=== PATIENT | female | born 1960 | race Caucasian/White ===

== ENCOUNTER 2021-10-21 16:48 | Inpatient (IN) | payer SELFPAY ==
[~2021-10-21] VITALS: Ht 162.6 cm; Wt 80.7 kg
[2021-10-21] MEDS ORDERED: DEXAMETHASONE 10 MG/ML VIAL IV ONE (17:45)
[2021-10-21 18:11] LABS: HEMATOCRIT. 43.4 % (36.0-48.0); HEMOGLOBIN. 14.3 g/dL (12.0-16.0); MEAN CORPUSCULAR HEMOGLOBIN 26.8 pg (28.0-32.0); MEAN PLATELET VOLUME 8.7 fl (7.4-10.4); PLATELET 224 x1000/uL (130-400); RED BLOOD CELL COUNT 5.36 mill/uL (4.2-5.4); RED CELL DISTRIBUTION WIDTH 14.4 % (11.6-14.6)
[2021-10-21 18:12] LABS: CHLORIDE 100 mEq/L (98-107)
[2021-10-21 18:42] LABS: PLATELET ESTIMATE NORMAL
[2021-10-21] MEDS ORDERED: KETOROLAC 15MG/ML VIAL IV ONE (19:30)
[2021-10-21] MEDS ORDERED: DOCUSATE SODIUM 100MG CAPSULE PO PRN (22:15)
[2021-10-21] MEDS ORDERED: CLONIDINE 0.1MG TABLET PO PRN (22:15)
[2021-10-21] MEDS ORDERED: NITROGLYCERIN 0.4MG TABLET SL SL PRN (22:15)
[2021-10-21] MEDS ORDERED: IPRATROPIUM/ALBUTEROL 0.5-3(2.5)MG/3ML NEB NEB PRN (22:15)
[2021-10-21] MEDS ORDERED: ZOLPIDEM TARTRATE 5MG TABLET PO PRN (22:15)
[2021-10-21] MEDS ORDERED: MAGNESIUM/ALUMINUM HYDROXIDE/SIMETHICONE 30ML UDC PO PRN (22:15)
[2021-10-21] MEDS ORDERED: ONDANSETRON HCL 4MG/2ML INJ IV PRN (22:15)
[2021-10-21] MEDS ORDERED: ACETAMINOPHEN 325MG TABLET PO PRN (22:15)
[2021-10-21] MEDS ORDERED: CEFTRIAXONE 1 G PREMIX 50 ML IV NR (22:30)
[2021-10-21 22:55] LABS: *AMPHETAMINES SCREEN URINE NEGATIVE (NEGATIVE); *BARBITURATES SCREEN URINE NEGATIVE (NEGATIVE); *BENZODIAZEPINES SCREEN URINE NEGATIVE (NEGATIVE); *COCAINE SCREEN URINE NEGATIVE (NEGATIVE); METHADONE URINE SCREEN NEGATIVE (NEGATIVE); OPIATES URINE SCREEN NEGATIVE (NEGATIVE)
[2021-10-21 22:56] LABS: CANNABINOID URINE SCREEN NEGATIVE (NEGATIVE); PHENCYCLIDINE URINE SCREEN NEGATIVE (NEGATIVE)
[2021-10-21 22:57] LABS: ETHANOL BLOOD < 10 mg/dL
[2021-10-21 22:59] LABS: TOTAL IRON BINDING CAPACITY 335 ug/dL (250-450)
[2021-10-21] MEDS ORDERED: AZITHROMYCIN 500MG/250ML 250 ML IV NR (23:00)
[2021-10-21 23:17] LABS: FOLIC ACID (FOLATE) SERUM 13.5 ng/mL (>5.38)
[2021-10-22] MEDS ORDERED: KETOROLAC 30MG/ML VIAL IV PRN (01:00)
[2021-10-22 08:10] LABS: HEMATOCRIT. 42.3 % (36.0-48.0); HEMOGLOBIN. 14.2 g/dL (12.0-16.0); MEAN CORPUSCULAR HEMOGLOBIN 26.8 pg (28.0-32.0); MEAN CORPUSCULAR VOLUME 80.3 fL (81.0-99.0); MEAN PLATELET VOLUME 8.4 fl (7.4-10.4); PLATELET 229 x1000/uL (130-400); RED BLOOD CELL COUNT 5.27 mill/uL (4.2-5.4); RED CELL DISTRIBUTION WIDTH 14.7 % (11.6-14.6)
[2021-10-22 08:16] LABS: CHLORIDE 106 mEq/L (98-107)
[2021-10-22 08:24] LABS: PHOSPHORUS 3.3 mg/dL (2.5-4.9)
[2021-10-22 08:27] LABS: CREATINE KINASE 93 IU/L (26-192)
[2021-10-22] MEDS: ALBUTEROL 6.7GM HFA INHALER ORI SCH ×3 (08:29→20:50)
[2021-10-22 08:31] LABS: CREATINE KINASE MB FRACTION < 1.0 ng/mL (0.5-3.6)
[2021-10-22 08:40] VITALS: BP 168/70
[2021-10-22] MEDS: ASCORBIC ACID 500 MG TABLET PO SCH ×2 (09:34→20:49)
[2021-10-22] MEDS: CHOLECALCIFEROL (D3) 1000 UNIT TABLET PO SCH (09:35)
[2021-10-22] MEDS: ENOXAPARIN 40MG/0.4ML SYR SUBCUT SCH (09:35)
[2021-10-22] MEDS: ZINC SULFATE 220 MG ( 50 ) CAPSULE PO SCH (09:35)
[2021-10-22] MEDS: LOSARTAN POTASSIUM 50 MG TABLET PO SCH (09:35)
[2021-10-22] MEDS: ASPIRIN 325MG EC TABLET PO SCH (09:35)
[2021-10-22] MEDS: FAMOTIDINE 20MG TABLET PO SCH ×2 (09:35→20:49)
[2021-10-22] MEDS ORDERED: ASPI-1497 PO (10:27)
[2021-10-22] MEDS ORDERED: LOSA50TA41 PO (10:27)
[2021-10-22] MEDS ORDERED: HYDR12.54 PO (10:27)
[2021-10-22] MEDS ORDERED: LOVA40TA73 PO (10:27)
[2021-10-22] MEDS ORDERED: DEXTROSE 50% WATER 50ML SYRINGE IV PRN (10:30)
[2021-10-22] MEDS: BLOOD SUGAR DIAGNOSTIC STRIP TEST SCH ×3 (11:44→20:49)
[2021-10-22 11:49] LABS: PLATELET ESTIMATE NORMAL
[2021-10-22 12:00] VITALS: BP 130/57
[2021-10-22] MEDS: INSULIN LISPRO 100 UNITS/ML SUBCUT SCH ×3 (12:20→20:48)
[2021-10-22] MEDS ORDERED: DEXAMETHASONE 4MG TABLET PO SCH (12:30)
[2021-10-22] MEDS: AZITHROMYCIN 500 MG in DEXT 5% WATER 250 ML IV SCH (13:27)
[2021-10-22 15:58] LABS: CREATINE KINASE 77 IU/L (26-192)
[2021-10-22 15:59] LABS: CREATINE KINASE MB FRACTION < 1.0 ng/mL (0.5-3.6)
[2021-10-22 16:00] VITALS: BP 121/67
[2021-10-22] MEDS: GUAIFENESIN 200MG/10ML SUGAR FREE UDC PO PRN (17:27)
[2021-10-22 20:00] VITALS: BP 131/73
[2021-10-22] MEDS: ACETAMINOPHEN 325MG TABLET PO PRN (20:49)
[2021-10-22] MEDS: CEFTRIAXONE 1,000 MG in DEXTROSE 5% WATER 50 ML IV SCH (20:49)
[2021-10-22] MEDS: ALBUTEROL 6.7GM HFA INHALER ORI PRN (20:50)
[2021-10-22] MEDS ORDERED: AZITHROMYCIN 500 MG in DEXT 5% WATER 250 ML IV SCH (22:00)
[2021-10-23] VITALS: BP 136/62
[2021-10-23 04:00] VITALS: BP 144/69
[2021-10-23] MEDS: ACETAMINOPHEN 325MG TABLET PO PRN (04:17)
[2021-10-23] MEDS: ALBUTEROL 6.7GM HFA INHALER ORI SCH ×4 (04:17→21:31)
[2021-10-23] MEDS: BLOOD SUGAR DIAGNOSTIC STRIP TEST SCH ×4 (06:45→21:30)
[2021-10-23 08:00] VITALS: BP 116/58
[2021-10-23] MEDS: ENOXAPARIN 40MG/0.4ML SYR SUBCUT SCH (08:06)
[2021-10-23] MEDS: ASCORBIC ACID 500 MG TABLET PO SCH ×2 (08:06→21:29)
[2021-10-23] MEDS: DEXAMETHASONE 6MG TABLET PO SCH (08:07)
[2021-10-23] MEDS: LOSARTAN POTASSIUM 50 MG TABLET PO SCH (08:07)
[2021-10-23] MEDS: FAMOTIDINE 20MG TABLET PO SCH ×2 (08:08→21:29)
[2021-10-23] MEDS: CHOLECALCIFEROL (D3) 1000 UNIT TABLET PO SCH (08:08)
[2021-10-23] MEDS: ASPIRIN 325MG EC TABLET PO SCH (08:08)
[2021-10-23] MEDS: ZINC SULFATE 220 MG ( 50 ) CAPSULE PO SCH (08:08)
[2021-10-23] MEDS: INSULIN LISPRO 100 UNITS/ML SUBCUT SCH ×4 (08:09→21:30)
[2021-10-23 12:00] VITALS: BP 124/56
[2021-10-23] MEDS: GUAIFENESIN 200MG/10ML SUGAR FREE UDC PO PRN (13:10)
[2021-10-23] MEDS: AZITHROMYCIN 500 MG in DEXT 5% WATER 250 ML IV SCH (14:29)
[2021-10-23 16:00] VITALS: BP 133/73
[2021-10-23 20:00] VITALS: BP 153/84
[2021-10-23] MEDS: CEFTRIAXONE 1,000 MG in DEXTROSE 5% WATER 50 ML IV SCH (21:29)
[2021-10-24] VITALS: BP 132/57
[2021-10-24] MEDS: ALBUTEROL 6.7GM HFA INHALER ORI PRN ×2 (03:53→08:53)
[2021-10-24 04:00] VITALS: BP 124/53
[2021-10-24] MEDS: ALBUTEROL 6.7GM HFA INHALER ORI SCH ×4 (05:47→21:23)
[2021-10-24] MEDS: BLOOD SUGAR DIAGNOSTIC STRIP TEST SCH ×4 (05:54→21:23)
[2021-10-24 08:00] VITALS: BP 145/62
[2021-10-24] MEDS: INSULIN LISPRO 100 UNITS/ML SUBCUT SCH ×4 (08:10→21:23)
[2021-10-24] MEDS: ZINC SULFATE 220 MG ( 50 ) CAPSULE PO SCH (08:52)
[2021-10-24] MEDS: ASPIRIN 325MG EC TABLET PO SCH (08:52)
[2021-10-24] MEDS: FAMOTIDINE 20MG TABLET PO SCH ×2 (08:52→21:21)
[2021-10-24] MEDS: ASCORBIC ACID 500 MG TABLET PO SCH ×2 (08:52→21:21)
[2021-10-24] MEDS: ENOXAPARIN 40MG/0.4ML SYR SUBCUT SCH (08:52)
[2021-10-24] MEDS: LOSARTAN POTASSIUM 50 MG TABLET PO SCH (08:52)
[2021-10-24] MEDS: DEXAMETHASONE 6MG TABLET PO SCH (08:53)
[2021-10-24] MEDS: CHOLECALCIFEROL (D3) 1000 UNIT TABLET PO SCH (08:53)
[2021-10-24 12:00] VITALS: BP 138/74
[2021-10-24] MEDS: AZITHROMYCIN 500 MG in DEXT 5% WATER 250 ML IV SCH (13:11)
[2021-10-24 16:00] VITALS: BP 135/67
[2021-10-24 20:00] VITALS: BP 113/71
[2021-10-24] MEDS: CEFTRIAXONE 1,000 MG in DEXTROSE 5% WATER 50 ML IV SCH (21:21)
[2021-10-25] VITALS: BP 118/73
[2021-10-25] MEDS: GUAIFENESIN 200MG/10ML SUGAR FREE UDC PO PRN ×2 (01:41→21:11)
[2021-10-25] MEDS: ALBUTEROL 6.7GM HFA INHALER ORI SCH ×4 (02:41→21:54)
[2021-10-25 04:00] VITALS: BP 144/58
[2021-10-25] MEDS: INSULIN LISPRO 100 UNITS/ML SUBCUT SCH ×4 (07:28→21:54)
[2021-10-25] MEDS: BLOOD SUGAR DIAGNOSTIC STRIP TEST SCH ×4 (07:28→21:48)
[2021-10-25 08:00] VITALS: BP 153/65
[2021-10-25] MEDS: DEXAMETHASONE 6MG TABLET PO SCH (08:00)
[2021-10-25] MEDS: FAMOTIDINE 20MG TABLET PO SCH ×2 (08:00→21:52)
[2021-10-25] MEDS: ASPIRIN 325MG EC TABLET PO SCH (08:00)
[2021-10-25] MEDS: LOSARTAN POTASSIUM 50 MG TABLET PO SCH (08:00)
[2021-10-25] MEDS: ZINC SULFATE 220 MG ( 50 ) CAPSULE PO SCH (08:00)
[2021-10-25] MEDS: CHOLECALCIFEROL (D3) 1000 UNIT TABLET PO SCH (08:00)
[2021-10-25] MEDS: ASCORBIC ACID 500 MG TABLET PO SCH ×2 (08:00→21:52)
[2021-10-25] MEDS: ENOXAPARIN 40MG/0.4ML SYR SUBCUT SCH (08:01)
[2021-10-25 12:00] VITALS: BP 144/72
[2021-10-25] MEDS: AZITHROMYCIN 500 MG in DEXT 5% WATER 250 ML IV SCH (13:01)
[2021-10-25 16:00] VITALS: BP 134/66
[2021-10-25 20:00] VITALS: BP 140/74
[2021-10-25] MEDS: CEFTRIAXONE 1,000 MG in DEXTROSE 5% WATER 50 ML IV SCH (21:52)
[2021-10-26] VITALS: BP 133/65
[2021-10-26] MEDS: ALBUTEROL 6.7GM HFA INHALER ORI SCH ×4 (03:00→21:00)
[2021-10-26 04:00] VITALS: BP 137/70
[2021-10-26] MEDS: BLOOD SUGAR DIAGNOSTIC STRIP TEST SCH ×4 (07:40→21:49)
[2021-10-26 08:00] VITALS: BP 125/65
[2021-10-26] MEDS: INSULIN LISPRO 100 UNITS/ML SUBCUT SCH ×4 (08:10→22:40)
[2021-10-26] MEDS: GUAIFENESIN 200MG/10ML SUGAR FREE UDC PO PRN ×3 (08:12→22:43)
[2021-10-26] MEDS: ASCORBIC ACID 500 MG TABLET PO SCH ×2 (08:12→22:39)
[2021-10-26] MEDS: LOSARTAN POTASSIUM 50 MG TABLET PO SCH (08:12)
[2021-10-26] MEDS: CHOLECALCIFEROL (D3) 1000 UNIT TABLET PO SCH (08:13)
[2021-10-26] MEDS: ASPIRIN 325MG EC TABLET PO SCH (08:13)
[2021-10-26] MEDS: DEXAMETHASONE 6MG TABLET PO SCH (08:13)
[2021-10-26] MEDS: FAMOTIDINE 20MG TABLET PO SCH ×2 (08:13→22:39)
[2021-10-26] MEDS: ZINC SULFATE 220 MG ( 50 ) CAPSULE PO SCH (08:14)
[2021-10-26] MEDS: ENOXAPARIN 40MG/0.4ML SYR SUBCUT SCH (08:16)
[2021-10-26 12:00] VITALS: BP 158/76
[2021-10-26 16:00] VITALS: BP 126/69
[2021-10-26] MEDS: ALBUTEROL 6.7GM HFA INHALER ORI PRN ×2 (16:11→22:40)
[2021-10-26] MEDS: BENZONATATE 100MG CAPSULE PO SCH ×2 (16:14→22:39)
[2021-10-26 20:00] VITALS: BP 131/71
[2021-10-27] VITALS: BP 133/74
[2021-10-27] MEDS: ALBUTEROL 6.7GM HFA INHALER ORI SCH ×4 (03:00→21:00)
[2021-10-27 04:00] VITALS: BP 130/70
[2021-10-27] MEDS: BENZONATATE 100MG CAPSULE PO SCH ×3 (06:56→20:34)
[2021-10-27] MEDS: INSULIN LISPRO 100 UNITS/ML SUBCUT SCH ×4 (07:32→20:59)
[2021-10-27] MEDS: BLOOD SUGAR DIAGNOSTIC STRIP TEST SCH ×4 (07:32→20:59)
[2021-10-27 08:00] VITALS: BP 140/64
[2021-10-27] MEDS: CHOLECALCIFEROL (D3) 1000 UNIT TABLET PO SCH (08:25)
[2021-10-27] MEDS: ZINC SULFATE 220 MG ( 50 ) CAPSULE PO SCH (08:25)
[2021-10-27] MEDS: ASPIRIN 325MG EC TABLET PO SCH (08:25)
[2021-10-27] MEDS: ENOXAPARIN 40MG/0.4ML SYR SUBCUT SCH (08:25)
[2021-10-27] MEDS: FAMOTIDINE 20MG TABLET PO SCH ×2 (08:26→20:33)
[2021-10-27] MEDS: DEXAMETHASONE 6MG TABLET PO SCH (08:26)
[2021-10-27] MEDS: ASCORBIC ACID 500 MG TABLET PO SCH ×2 (08:26→20:33)
[2021-10-27] MEDS: ALBUTEROL 6.7GM HFA INHALER ORI PRN (08:27)
[2021-10-27] MEDS: LOSARTAN POTASSIUM 50 MG TABLET PO SCH (08:27)
[2021-10-27 12:00] VITALS: BP_SYST 125; BP_SYST 142; BP_DIAS 68; BP_DIAS 70
[2021-10-27 16:00] VITALS: BP 114/55
[2021-10-27 20:00] VITALS: BP 140/68
[2021-10-28 00:05] VITALS: BP 103/71
[2021-10-28 04:00] VITALS: BP 117/67
[2021-10-28] MEDS: BENZONATATE 100MG CAPSULE PO SCH ×3 (05:20→21:07)
[2021-10-28] MEDS: ALBUTEROL 6.7GM HFA INHALER ORI SCH ×4 (05:20→22:13)
[2021-10-28] MEDS: BLOOD SUGAR DIAGNOSTIC STRIP TEST SCH ×4 (05:25→21:00)
[2021-10-28] MEDS: INSULIN LISPRO 100 UNITS/ML SUBCUT SCH ×4 (05:25→21:00)
[2021-10-28 06:55] LABS: HEMATOCRIT. 41.8 % (36.0-48.0); HEMOGLOBIN. 14.1 g/dL (12.0-16.0); MEAN CORPUSCULAR HEMOGLOBIN 27.5 pg (28.0-32.0); MEAN CORPUSCULAR VOLUME 81.4 fL (81.0-99.0); MEAN PLATELET VOLUME 7.7 fl (7.4-10.4); PLATELET 483 x1000/uL (130-400); RED BLOOD CELL COUNT 5.13 mill/uL (4.2-5.4)
[2021-10-28 07:04] LABS: CHLORIDE 106 mEq/L (98-107)
[2021-10-28 08:00] VITALS: BP 104/71
[2021-10-28] MEDS: LOSARTAN POTASSIUM 50 MG TABLET PO SCH (08:39)
[2021-10-28] MEDS: ASPIRIN 325MG EC TABLET PO SCH (08:40)
[2021-10-28] MEDS: ZINC SULFATE 220 MG ( 50 ) CAPSULE PO SCH (08:40)
[2021-10-28] MEDS: ENOXAPARIN 40MG/0.4ML SYR SUBCUT SCH (08:40)
[2021-10-28] MEDS: ASCORBIC ACID 500 MG TABLET PO SCH ×2 (08:40→21:07)
[2021-10-28] MEDS: GUAIFENESIN 200MG/10ML SUGAR FREE UDC PO PRN (08:40)
[2021-10-28] MEDS: DEXAMETHASONE 6MG TABLET PO SCH (08:41)
[2021-10-28] MEDS: FAMOTIDINE 20MG TABLET PO SCH ×2 (08:41→21:07)
[2021-10-28] MEDS: CHOLECALCIFEROL (D3) 1000 UNIT TABLET PO SCH (08:41)
[2021-10-28 12:00] VITALS: BP 102/64
[2021-10-28 13:56] LABS: PLATELET ESTIMATE INCREASED
[2021-10-28 16:00] VITALS: BP 138/69
[2021-10-28 20:00] VITALS: BP 124/58
[2021-10-29] VITALS (7 sets, daily range): BP systolic 103–145; BP diastolic 51–69
[2021-10-29] MEDS: ALBUTEROL 6.7GM HFA INHALER ORI SCH ×4 (03:34→20:45)
[2021-10-29] MEDS: BENZONATATE 100MG CAPSULE PO SCH ×3 (05:49→21:44)
[2021-10-29] MEDS: INSULIN LISPRO 100 UNITS/ML SUBCUT SCH ×4 (05:52→21:45)
[2021-10-29] MEDS: BLOOD SUGAR DIAGNOSTIC STRIP TEST SCH ×4 (05:52→20:45)
[2021-10-29] MEDS: CHOLECALCIFEROL (D3) 1000 UNIT TABLET PO SCH (08:10)
[2021-10-29] MEDS: FAMOTIDINE 20MG TABLET PO SCH ×2 (08:10→20:39)
[2021-10-29] MEDS: ASCORBIC ACID 500 MG TABLET PO SCH ×2 (08:10→20:38)
[2021-10-29] MEDS: DEXAMETHASONE 6MG TABLET PO SCH (08:10)
[2021-10-29] MEDS: ASPIRIN 325MG EC TABLET PO SCH (08:10)
[2021-10-29] MEDS: LOSARTAN POTASSIUM 50 MG TABLET PO SCH (08:10)
[2021-10-29] MEDS: ZINC SULFATE 220 MG ( 50 ) CAPSULE PO SCH (08:10)
[2021-10-29] MEDS: ENOXAPARIN 40MG/0.4ML SYR SUBCUT SCH (08:11)
[2021-10-29] MEDS: ALBUTEROL 6.7GM HFA INHALER ORI PRN ×2 (15:38→20:37)
[2021-10-30] VITALS: BP 132/68
[2021-10-30] MEDS: ALBUTEROL 6.7GM HFA INHALER ORI SCH ×2 (03:00→08:50)
[2021-10-30] MEDS: BLOOD SUGAR DIAGNOSTIC STRIP TEST SCH ×2 (06:22→12:24)
[2021-10-30] MEDS: BENZONATATE 100MG CAPSULE PO SCH (06:23)
[2021-10-30] MEDS: INSULIN LISPRO 100 UNITS/ML SUBCUT SCH (06:31)
[2021-10-30 08:00] VITALS: BP 132/65
[2021-10-30] MEDS: LOSARTAN POTASSIUM 50 MG TABLET PO SCH (08:51)
[2021-10-30] MEDS: ZINC SULFATE 220 MG ( 50 ) CAPSULE PO SCH (08:51)
[2021-10-30] MEDS: DEXAMETHASONE 6MG TABLET PO SCH (08:51)
[2021-10-30] MEDS: FAMOTIDINE 20MG TABLET PO SCH (08:51)
[2021-10-30] MEDS: ASCORBIC ACID 500 MG TABLET PO SCH (08:51)
[2021-10-30] MEDS: ASPIRIN 325MG EC TABLET PO SCH (08:51)
[2021-10-30] MEDS: ENOXAPARIN 40MG/0.4ML SYR SUBCUT SCH (08:51)
[2021-10-30] MEDS: CHOLECALCIFEROL (D3) 1000 UNIT TABLET PO SCH (08:51)
[2021-10-30] MEDS ORDERED: ASCO-339 MT (11:40)
[2021-10-30] MEDS ORDERED: ZINC220C2 (11:41)
[2021-10-30 11:42] VITALS: BP 132/68
[2021-10-30] MEDS ORDERED: ALBU6.7H9 INH (11:42)
[2021-10-30 12:00] VITALS: BP 132/68
[2021-10-30] MEDS ORDERED: *PATIENT'S OWN MEDICATION STORAGE XX SCH (12:45)
== END 2021-10-30 13:00 | disposition home or self-care (01) | DRG 720 ==
LOC: ER 16:48 → MICUSO 23:35 → 7WST 23:35 → UNDOADMIN 23:35 → 7WST 10-22 09:02
PROVIDERS: ADMIT Internal Medicine; ATTEND Internal Medicine
DX: A41.89 Other specified sepsis (principal); J96.01 Acute respiratory failure with hypoxia; J12.82 Pneumonia due to coronavirus disease 2019; U07.1 COVID-19; E44.0 Moderate protein-calorie malnutrition; E11.9 Type 2 diabetes mellitus without complications; I11.9 Hypertensive heart disease without heart failure; E83.41 Hypermagnesemia; E83.51 Hypocalcemia; J45.909 Unspecified asthma, uncomplicated; E78.5 Hyperlipidemia, unspecified; Z78.9 Other specified health status; Z79.4 Long term (current) use of insulin; Z68.30 Body mass index [BMI] 30.0-30.9, adult
CPT/HCPCS: 36415; 71045; 80048; 80053; 80305; 80320; 82550; 82553; 82607; 82728; 82746; 82962; 83036; 83540; 83550; 83615; 83735; 83880; 84100; 84145; 84484; 85025; 85379; 86140; 87426; 93005; 93970; 94640; 99285; C9803; J0456; J0696; J1100; J1650; J1815; J1885; J7060; J8540; U0003; U0005; G0480

== ENCOUNTER 2022-12-25 05:31 | Emergency (ER) | payer OTHER ==
[~2022-12-25] VITALS: Ht 162.6 cm; Wt 75.0 kg
[~2022-12-25 05:31] MED LIST: ALBU6.7H3 INH; ASCO-339 MT; ASPI-1497 PO; HYDR12.54 PO; LOSA50TA41 PO; LOVA40TA73 PO; ZINC220C2
[2022-12-25 06:12] VITALS: BP 128/56
[2022-12-25] MEDS ORDERED: KETOROLAC 60MG/2ML VIAL IM ONE (07:00)
[2022-12-25] MEDS ORDERED: NAPR-681 PO (08:54)
[2022-12-25] MEDS ORDERED: NAPROXEN 250MG TABLET PO ONE (10:30)
== END 2022-12-25 10:43 | disposition home or self-care (01) ==
LOC: ER 05:31
DX: M25.512 Pain in left shoulder (principal); I10 Essential (primary) hypertension; E78.00 Pure hypercholesterolemia, unspecified; E03.9 Hypothyroidism, unspecified; Z79.82 Long term (current) use of aspirin
CPT/HCPCS: 73030; 99283; A4565